=== PATIENT | female | born 1970 | race Two or more races ===

== ENCOUNTER 2019-09-17 15:51 | Emergency (ER) | payer SELFPAY ==
[~2019-09-17] VITALS: Ht 160 cm; Wt 61.2 kg
[2019-09-17 16:11] VITALS: BP 147/98
[2019-09-17] MEDS ORDERED: ACETAMINOPHEN/CODEINE#3 (300/30mg) TAB PO ONE (16:30)
== END 2019-09-17 17:33 | disposition home or self-care (01) ==
LOC: ER 15:51
DX: S63.287A Dislocation of proximal interphalangeal joint of left little finger, initial encounter (principal); W22.8XXA Striking against or struck by other objects, initial encounter; Y93.31 Activity, mountain climbing, rock climbing and wall climbing; Y92.89 Other specified places as the place of occurrence of the external cause; Y99.8 Other external cause status
CPT/HCPCS: 26770; 73140